=== PATIENT | male | born 1955 | race Caucasian/White ===

== ENCOUNTER 2023-03-25 19:59 | Emergency (ER) | payer MEDICARE, OTHER ==
[2023-03-25] MEDS ORDERED: Sodium Chloride 0.9% 1,000 ML IV ONE (20:39)
[2023-03-25] MEDS ORDERED: Sodium Chloride 0.9% 2.5 ML Syringe FLUSH PRN (20:39)
[2023-03-25] MEDS ORDERED: Ondansetron 4 MG/2 ML SDV IVPUSH ONE (20:39)
[2023-03-25] MEDS ORDERED: Sodium Chloride 0.9% 10 ML Syringe FLUSH PRN (20:39)
[2023-03-25] MEDS ORDERED: Ketorolac 30 MG/ML SDV IVPUSH ONE (20:39)
[2023-03-25] MEDS ORDERED: Tamsulosin 0.4 MG Cap.ER PO ONE (20:40)
[2023-03-25 20:58] LABS: BASOPHILS ABSOLUTE AUTO 0.1 K/uL (0.0-0.1); BASOPHILS PERCENT AUTO 0.6 % (0.0-1.5); EOSINOPHILS ABSOLUTE AUTO 0.2 K/uL (0.0-0.7); HEMATOCRIT 42.6 % (38.0-50.0); HEMOGLOBIN 14.5 g/dL (13.0-17.0); LYMPHOCYTES ABSOLUTE AUTO 1.3 K/uL (0.6-2.4); MEAN CORPUSCULAR HEMOGLOBIN 31.2 pg (27.0-32.0); MEAN CORPUSCULAR VOLUME 91.6 fL (80.0-98.0); MONOCYTES ABSOLUTE AUTO 0.5 K/uL (0.0-0.8); MONOCYTES PERCENT AUTO 6.6 % (0.0-15.0); NEUTROPHILS PERCENT AUTO 74.8 % (48.0-80.0); NRBC ABSOLUTE 0 K/uL; PLATELET COUNT,PLT 285 K/uL (150-400); RED BLOOD CELL COUNT 4.65 M/uL (4.50-5.90)
[2023-03-25 21:19] LABS: A/G RATIO 1.2 (0.9-1.6); ALBUMIN 3.5 g/dL (3.4-5.0); BILIRUBIN TOTAL 0.4 mg/dL (0.2-1.0); CALCIUM 8.1 mg/dL (8.5-10.1); CARBON DIOXIDE,CO2 27.7 mmol/L (21.0-32.0); CREATININE 1.5 mg/dL (0.8-1.3); EST CRCL DRUG DOSING (CG) 46.23 mL/min; POTASSIUM,K 3.8 mmol/L (3.5-5.1); PROTEIN TOTAL,TP 6.5 g/dL (6.4-8.2)
[2023-03-25 21:49] LABS: APPEARANCE,URINE CLEAR; BILIRUBIN,URINE NEGATIVE (NEGATIVE); COLOR,URINE YELLOW; GLUCOSE,URINE NEGATIVE (NEGATIVE); KETONES,URINE NEGATIVE (NEGATIVE); LEUKOCYTE ESTERASE,URINE NEGATIVE (NEGATIVE); NITRITE,URINE NEGATIVE (NEGATIVE); OCCULT BLOOD,URINE LARGE (NEGATIVE); PROTEIN,URINE NEGATIVE (NEGATIVE); UROBILINOGEN,URINE 0.2 EU/dL (<2.0)
[2023-03-25 21:57] LABS: BACTERIA,URINE FEW (NEGATIVE); EPITHELIAL CELLS,URINE OCCASIONAL (NONE-FEW); WBC,URINE 0-2 (0-5/HPF)
== END 2023-03-25 22:18 | disposition home or self-care (01) ==
LOC: MW.ED 19:59
DX: N23 Unspecified renal colic (principal); I10 Essential (primary) hypertension; E03.9 Hypothyroidism, unspecified; Z79.899 Other long term (current) drug therapy
CPT/HCPCS: 36415; 80053; 81001; 85025; 96374; 96375; 99284; A9270; J1885; J2405; J3490; J7030